=== PATIENT | female | born 1975 | race Caucasian/White ===

== ENCOUNTER 2017-12-31 12:54 | Outpatient (CLI) | payer BC | END 2017-12-31 12:55 | LOC: LABRHC 12:54 | PROVIDERS: ATTEND Physician Assistant | DX: R30.0 Dysuria (principal) | CPT/HCPCS: 87086 ==

== ENCOUNTER 2018-03-17 15:06 | Outpatient (CLI) | payer BC | END 2018-03-17 15:08 | LOC: LABRHC 15:06 | PROVIDERS: ATTEND Physician Assistant | DX: N89.8 Other specified noninflammatory disorders of vagina (principal) | CPT/HCPCS: 87491; 87591; 87798 ==

== ENCOUNTER 2018-11-18 16:50 | Outpatient (CLI) | payer BC | END 2018-11-18 16:55 | disposition home or self-care (01) | LOC: LABRHC 16:50 | PROVIDERS: ATTEND Physician Assistant | DX: C44.321 Squamous cell carcinoma of skin of nose (principal) ==